=== PATIENT | female | born 1990 | race Caucasian/White ===

== ENCOUNTER 2019-08-11 16:47 | Inpatient (IN) | payer OTHER ==
[~2019-08-11] VITALS: Ht 177.8 cm; Wt 112.7 kg
[2019-08-11 16:55] VITALS: BP 125/75
[2019-08-11] MEDS ORDERED: OXYTOCIN 30U/ 0.9% NaCL 500ML 500 ML IV ONE (18:34)
[2019-08-11] MEDS ORDERED: D5%-LACTATED RINGERS 1,000 ML IV SCH (18:34)
[2019-08-11] MEDS ORDERED: NEWBORN KIT ONE (18:51)
[2019-08-11] MEDS ORDERED: FENTANYL PF 100 MCG/2ML IVPush PRN (19:00)
[2019-08-11] MEDS ORDERED: ONDANSETRON 2MG/ML, 2ML IVPush PRN ×2 (19:00→23:30)
[2019-08-11] MEDS ORDERED: TERBUTALINE 1 MG/ML, 1ML SQ PRN (19:00)
[2019-08-11] MEDS ORDERED: TERBUTALINE 1 MG/ML, 1ML IVPush PRN (19:00)
[2019-08-11] MEDS ORDERED: PENICILLIN GK 5,000,000 UNITS in DEXTROSE 5% 100 ML IVPB ONE (19:00)
[2019-08-11 19:01] LABS: BASOPHILS # (AUTO) 0.17 x10^3/uL (0-0.1); BASOPHILS % (AUTO) 1 % (0-1); EOSINOPHILS # (AUTO) 0.04 x10^3/uL (0-0.4); EOSINOPHILS % (AUTO) 0 % (1-7); LYMPHOCYTES # (AUTO) 1.34 x10^3/uL (1-3.4); LYMPHOCYTES % (AUTO) 10 % (22-44); MD NO; MEAN CORPUSCULAR HEMOGLOBIN 30.8 pg (27.0-34.8); MEAN CORPUSCULAR HGB CONC 33.5 g/dL (32.4-35.8); MEAN PLATELET VOLUME 8.4 fL (7.4-10.4); MONOCYTES # (AUTO) 0.67 x10^3/uL (0.2-0.8); MONOCYTES % (AUTO) 5 % (2-9); NEUTROPHILS # (AUTO) 11.72 x10^3/uL (1.8-6.8); NEUTROPHILS % (AUTO) 84 % (42-75); PLATELET COUNT 225 x10^3/uL (130-400); RED BLOOD COUNT 4.06 x10^6/uL (3.82-5.3); RED CELL DISTRIBUTION WIDTH 14.4 % (9.6-15.2)
[2019-08-11] MEDS: LACTATED RINGERS 1,000 ML IV SCH ×3 (19:15→23:00)
[2019-08-11] MEDS ORDERED: MISOPROSTOL 200 MCG TABLET ONE (19:38)
[2019-08-11] MEDS ORDERED: OXYTOCIN 30U/ 0.9% NaCL 500ML 500 ML ONE (19:38)
[2019-08-11] MEDS ORDERED: LIDOCAINE 1%, 20ML ONE (19:38)
[2019-08-11] MEDS ORDERED: FENTANYL/BUPIV./NS/PF 250 ML EPIDCONT SCH ×2 (22:16→23:21)
[2019-08-11] MEDS ORDERED: FENTANYL PF 500 MCG, BUPIVACAINE/PF 0.5%, 30ML 62.5 ML in SODIUM CHLORIDE 0.9% 177.5 ML EPIDCONT SCH (22:30)
[2019-08-11] MEDS ORDERED: FENTANYL/BUPIV./NS/PF 250 ML EPIDCONT ONE (22:52)
[2019-08-11] MEDS ORDERED: BUPIVACAINE 0.25% ONE (22:57)
[2019-08-11] MEDS: PENICILLIN GK 2,500,000 UNITS in DEXTROSE 5% 100 ML IVPB SCH (23:26)
[2019-08-11] MEDS ORDERED: LACTATED RINGERS 1,000 ML IVBOLUS PRN (23:30)
[2019-08-11] MEDS ORDERED: NALOXONE 0.4 MG/ML, 1ML IVPush PRN (23:30)
[2019-08-11] MEDS ORDERED: DIPHENHYDRAMINE 50 MG/ML, 1ML IVPush PRN (23:30)
[2019-08-12] MEDS ORDERED: EPHEDRINE 50 MG/ML, 1ML ONE (00:22)
[2019-08-12] MEDS: EPHEDRINE 50 MG/ML, 1ML IVPush PRN ×2 (00:27→02:24)
[2019-08-12] MEDS: PENICILLIN GK 2,500,000 UNITS in DEXTROSE 5% 100 ML IVPB SCH ×4 (03:26→15:23)
[2019-08-12] MEDS ORDERED: OXYTOCIN 30U/ 0.9% NaCL 500ML 500 ML IV PRN (04:15)
[2019-08-12] MEDS: LACTATED RINGERS 1,000 ML IV SCH ×3 (07:46→17:47)
[2019-08-12] MEDS ORDERED: ONDANSETRON 2MG/ML, 2ML ONE (08:38)
[2019-08-12] MEDS ORDERED: MISOPROSTOL 200 MCG TABLET ONE (10:24)
[2019-08-12] MEDS ORDERED: NEWBORN KIT ONE (10:24)
[2019-08-12] MEDS ORDERED: LIDOCAINE 1%, 20ML ONE (10:24)
[2019-08-12] MEDS ORDERED: OXYTOCIN 30U/ 0.9% NaCL 500ML 500 ML ONE ×2 (10:24→17:42)
[2019-08-12] MEDS ORDERED: ONDANSETRON 2MG/ML, 2ML IV PRN (17:30)
[2019-08-12] MEDS ORDERED: SIMETHICONE 80 MG CHEW TAB PO PRN (17:30)
[2019-08-12] MEDS ORDERED: MISOPROSTOL 200 MCG TABLET PR PRN (17:30)
[2019-08-12] MEDS ORDERED: ACETAMINOPHEN 325 MG TABLET PO PRN (17:30)
[2019-08-12] MEDS ORDERED: OXYcodone/APAP 5/325MG TABLET PO PRN (17:30)
[2019-08-12] MEDS ORDERED: OXYcodone IR 5MG TABLET PO PRN (17:30)
[2019-08-12] MEDS: OXYTOCIN 30U/ 0.9% NaCL 500ML 500 ML IV SCH (17:47)
[2019-08-12 19:54] VITALS: BP 112/67
[2019-08-13 00:19] VITALS: BP 116/66
[2019-08-13] MEDS: IBUPROFEN 600 MG TABLET PO PRN ×4 (00:26→20:17)
[2019-08-13 01:37] LABS: MEAN CORPUSCULAR HEMOGLOBIN 31.3 pg (27.0-34.8); MEAN CORPUSCULAR HGB CONC 33.9 g/dL (32.4-35.8); MEAN CORPUSCULAR VOLUME 92.3 fL (80-100); MEAN PLATELET VOLUME 8.7 fL (7.4-10.4); PLATELET COUNT 186 x10^3/uL (130-400); RED BLOOD COUNT 3.06 x10^6/uL (3.82-5.3); RED CELL DISTRIBUTION WIDTH 14.1 % (9.6-15.2)
[2019-08-13 01:47] LABS: BASOPHILS # (AUTO) 0.05 x10^3/uL (0-0.1); BASOPHILS % (AUTO) 0 % (0-1); EOSINOPHILS % (AUTO) 1 % (1-7); LYMPHOCYTES # (AUTO) 1.85 x10^3/uL (1-3.4); LYMPHOCYTES % (AUTO) 10 % (22-44); MD SCAN; MONOCYTES # (AUTO) 1.42 x10^3/uL (0.2-0.8); MONOCYTES % (AUTO) 7 % (2-9); NEUTROPHILS # (AUTO) 15.71 x10^3/uL (1.8-6.8); NEUTROPHILS % (AUTO) 82 % (42-75)
[2019-08-13] MEDS: OXYTOCIN 30U/ 0.9% NaCL 500ML 500 ML IV SCH ×3 (03:13→23:13)
[2019-08-13 04:38] VITALS: BP 113/64
[2019-08-13 08:10] VITALS: BP 113/74
[2019-08-13] MEDS: DOCUSATE 100 MG CAPSULE PO PRN ×2 (08:35→20:17)
[2019-08-13] MEDS: PRENATAL VIT/IRON/FA 1 EACH TABLET PO SCH (08:35)
[2019-08-13 15:50] VITALS: BP 112/66
[2019-08-13 19:54] VITALS: BP 107/69
[2019-08-14] MEDS: IBUPROFEN 600 MG TABLET PO PRN ×2 (02:06→09:34)
[2019-08-14 08:00] VITALS: BP 95/59
[2019-08-14] MEDS: OXYTOCIN 30U/ 0.9% NaCL 500ML 500 ML IV SCH (09:13)
[2019-08-14] MEDS: DOCUSATE 100 MG CAPSULE PO PRN (09:34)
[2019-08-14] MEDS: PRENATAL VIT/IRON/FA 1 EACH TABLET PO SCH (09:34)
[2019-08-14] MEDS ORDERED: IBUP-1222 PO (10:45)
== END 2019-08-14 11:50 | disposition home or self-care (01) | DRG 807 ==
LOC: LDOP 16:47 → LDIP 18:43 → 2NW 08-12 19:41
PROVIDERS: ADMIT Obstetrics & Gynecology; ATTEND Obstetrics & Gynecology
PROC: 10E0XZZ Delivery of Products of Conception, External Approach (ICD-10-PCS; principal; 2019-08-12)
PROC: 0KQM0ZZ Repair Perineum Muscle, Open Approach (ICD-10-PCS; 2019-08-12)
PROC: 10907ZC Drainage of Amniotic Fluid, Therapeutic from Products of Conception, Via Natural or Artificial Opening (ICD-10-PCS; 2019-08-12)
PROC: 3E0R3BZ Introduction of Anesthetic Agent into Spinal Canal, Percutaneous Approach (ICD-10-PCS; 2019-08-12)
PROC: 00HU33Z Insertion of Infusion Device into Spinal Canal, Percutaneous Approach (ICD-10-PCS; 2019-08-12)
DX: O99.824 Streptococcus B carrier state complicating childbirth (principal); Z37.0 Single live birth; O63.1 Prolonged second stage (of labor); O70.1 Second degree perineal laceration during delivery; Z3A.39 39 weeks gestation of pregnancy
CPT/HCPCS: 36415; J7121; 85025; 86592; 86850; 86900; G0378; J2405; J2540; J2590; J7120